=== PATIENT | male | born 1945 | race Caucasian/White ===

== ENCOUNTER 2019-04-17 08:43 | Day surgery (SDC) | payer MEDICARE, BC ==
[2019-04-17] MEDS ORDERED: Sodium Chloride 0.9% 1,000 ML IV SCH (09:15)
[2019-04-17] MEDS ORDERED: Propofol 200 MG/20 ML SDV ONE (09:38)
[2019-04-17] MEDS ORDERED: fentaNYL 100 MCG/2 ML SDV ONE (09:38)
[2019-04-17] MEDS ORDERED: Midazolam 1 MG/ML 2 ML SDV ONE (09:38)
[2019-04-17] MEDS ORDERED: Dextrose 5%-0.9% NaCl 1,000 ML IV SCH (10:45)
[2019-04-17 13:48] VITALS: BP 90/52; PULSE 64
--- NOTE | 2019-04-17 15:09 | PROC ---
DATE OF PROCEDURE: 04/17/2019 SURGEON: Desmond Taylor MD PROCEDURE: Colonoscopy. PRE-PROCEDURE DIAGNOSIS: Screening colonoscopy. POSTPROCEDURE DIAGNOSES: 1. Screening colonoscopy. 2. Normal colon. DESCRIPTION OF PROCEDURE: Risks and goals of procedure reviewed with the patient. He gave informed consent to proceed. He was brought back to the endoscopy room. Sedation and monitoring provided by Navin John from the Anesthesia Service. A time-out was held prior to the procedure to confirm right patient, right site, right procedure, as well as to review any potential concerns regarding the procedure, of which there were none. He was placed in a left lateral decubitus position. After adequate sedation was achieved, digital rectal exam was performed, which was unremarkable. Following this, a flexible colonoscope was placed and advanced out through the colon to the cecum. The cecum was identified by the appendiceal orifice and ileocecal valve. Scope was then slowly withdrawn back through the length of the colon to the rectum, where it was retroflexed, straightened and removed. He was noted to have a [id number] colonic anastomosis in the region of sigmoid colon. There were no other mucosal polyps, masses, or lesions seen and the procedure was, otherwise, completed without complication. He will be monitored in [facility] in outpatient area until fully recovered from IV sedation and then discharged to home. Desmond Taylor MD /[id number]
== END 2019-04-17 13:56 | disposition home or self-care (01) ==
LOC: JP.SDS 08:43
PROVIDERS: ATTEND Hospitalist
DX: Z12.11 Encounter for screening for malignant neoplasm of colon (principal); I12.9 Hypertensive chronic kidney disease with stage 1 through stage 4 chronic kidney disease, or unspecified chronic kidney disease; N18.3 Chronic kidney disease, stage 3 (moderate); I25.10 Atherosclerotic heart disease of native coronary artery without angina pectoris; E78.5 Hyperlipidemia, unspecified; Z98.0 Intestinal bypass and anastomosis status
CPT/HCPCS: 82962; G0121; J2250; J2704; J3010; J7030

== ENCOUNTER 2022-02-12 16:29 | Emergency (ER) | payer MEDICARE, BC ==
[2022-02-12] MEDS ORDERED: Sodium Chloride 0.9% 1,000 ML IV ONE ×2 (17:08→18:54)
[2022-02-12] MEDS ORDERED: Sodium Chloride 0.9% 10 ML Syringe FLUSH PRN (17:08)
[2022-02-12 17:40] LABS: ESTIMATED GFR 13 mL/min (>60)
[2022-02-12] MEDS ORDERED: Sodium Chloride 0.9% 1,000 ML IV SCH (20:00)
[2022-02-12 21:02] VITALS: BP 110/64; PULSE 69
== END 2022-02-12 21:31 ==
LOC: JP.ED 16:29
DX: I95.9 Hypotension, unspecified (principal); N17.9 Acute kidney failure, unspecified; E11.22 Type 2 diabetes mellitus with diabetic chronic kidney disease; I12.9 Hypertensive chronic kidney disease with stage 1 through stage 4 chronic kidney disease, or unspecified chronic kidney disease; N18.31 Chronic kidney disease, stage 3a; R19.7 Diarrhea, unspecified; E83.39 Other disorders of phosphorus metabolism; Z88.0 Allergy status to penicillin; Z88.8 Allergy status to other drugs, medicaments and biological substances; Z91.030 Bee allergy status; Z79.899 Other long term (current) drug therapy; Z79.82 Long term (current) use of aspirin; Z87.891 Personal history of nicotine dependence; Z20.822 Contact with and (suspected) exposure to COVID-19
CPT/HCPCS: 36415; 51702; 80053; 81001; 82803; 83605; 83735; 84100; 85025; 86140; 96360; 96361; 99285; J3490; J7030; U0002